=== PATIENT | male | born 1945 | race Caucasian/White ===

== ENCOUNTER 2020-01-05 16:25 | Emergency (ER) | payer MEDICARE, OTHER ==
[~2020-01-05] VITALS: Ht 182.9 cm; Wt 118.2 kg
[2020-01-05] MEDS ORDERED: TERBUTALINE 1 MG/ML VIAL. SQ ONE (16:45)
[2020-01-05] MEDS ORDERED: MORPHINE SULFATE 4 MG/ML DISP.SYRIN. IM ONE (16:45)
[2020-01-05] MEDS ORDERED: LIDOCAINE 1% Multi-Dose 20 ML VIAL. ONE (17:05)
[2020-01-05] MEDS ORDERED: LIDOCAINE 1% PF 30 ML VIAL. INJ ONE (17:15)
[2020-01-05 17:26] VITALS: BP 154/78
--- NOTE | 2020-01-05 18:01 | PHYS DOC ---
Past History Past Medical History: Hypertension Past Surgical History: No Surgical History Alcohol Use: Occasionally Drug Use: None General Adult EDM: Chief Complaint: PROLONGED ERECTION HPI: HPI: 74-year-old male coming in for penis swelling. Is concerned because he took his Viagra and Trymex injection this morning, after intercourse evaluation with. Has been walking around shopping today and after he got home noticed some swelling in his penis. Had an incident a week ago where he was doing his Trimix injection of the needle broke, patient put the needle back on and continue the injection but noted scrotal bruising afterwards. Review of Systems: Review of Systems: Constitutional: Denies fever or chills Eyes: Denies change in visual acuity HENT: Denies nasal congestion or sore throat Respiratory: Denies cough or shortness of breath Cardiovascular: Denies chest pain or edema GI: Denies abdominal pain, nausea, vomiting, bloody stools or diarrhea : Denies dysuria penile swelling Musculoskeletal: Denies back pain or joint pain Integument: Denies rash Neurologic: Denies headache, focal weakness or sensory changes Endocrine: Denies polyuria or polydipsia Lymphatic: Denies swollen glands Psychiatric: Denies depression or anxiety Heart Score: Risk Factors: Risk Factors: DM, Current or recent (<one month) smoker, HTN, HLP, family history of CAD, obesity. Risk Scores: Score 0 - 3: 2.5% MACE over next 6 weeks - Discharge Home Score 4 - 6: 20.3% MACE over next 6 weeks - Admit for Clinical Observation Score 7 - 10: 72.7% MACE over next 6 weeks - Early Invasive Strategies Current Medications: Current Meds: Current Medications Medications (Trade) Dose Ordered Sig/[facility] Start Time Stop Time Status Last Admin Dose Admin Lidocaine HCl 20 ml STK-MED ONCE 01/05/20 17:05 01/05/20 17:06 DC Lidocaine HCl (Lidocaine 1% Pf) 30 ml 1X ONCE 01/05/20 17:15 01/05/20 17:16 DC Morphine Sulfate (Morphine 4mg Syringe) 4 mg 1X ONCE 01/05/20 16:45 01/05/20 16:51 DC 01/05/20 17:00 4 MG Terbutaline Sulfate (Brethine) 0.5 mg 1X ONCE 01/05/20 16:45 01/05/20 16:51 DC 01/05/20 17:00 0.5 MG Allergies: Allergies: Allergies Coded Allergies Type Severity Reaction Last Updated Verified No Known Drug Allergies 01/18/15 No Physical Exam: PE: Constitutional: Well developed, well nourished, no acute distress, non-toxic appearance. [] HENT: Normocephalic, atraumatic, bilateral external ears normal, oropharynx moist, no oral exudates, nose normal. [] Eyes: PERRLA, EOMI, conjunctiva normal, no discharge. [] Neck: Normal range of motion, no tenderness, supple, no stridor. [] Cardiovascular:Heart rate regular rhythm, no murmur [] Lungs & Thorax: Bilateral breath sounds clear to auscultation [] Abdomen: Bowel sounds normal, soft, no tenderness, no masses, no pulsatile masses. [] Skin: Warm, dry, no erythema, no rash. [] Back: No tenderness, no CVA tenderness. [] Extremities: No tenderness, no cyanosis, no clubbing, ROM intact, no edema. [] Neurologic: Alert and oriented X 3, normal motor function, normal sensory function, no focal deficits noted. [] Psychologic: Affect normal, judgement normal, mood normal. [] At ventral site of penis and midshaft there was a 2 x 2 cm fluctuant area, shaft not correct Current Patient Data: Vital Signs: Vital Signs Date Time Temp Pulse Resp B/P (MAP) Pulse Ox O2 Delivery O2 Flow Rate FiO2 01/05/20 17:26 80 18 154/78 (103) 98 Room Air EKG: EKG: [] Radiology/Procedures: Radiology/Procedures: [] Course & Med Decision Making: Course & Med Decision Making No priapism, concern for abscess versus seroma versus hematoma after recent trauma with needle. 1% lidocaine used and needle aspiration with 18-gauge decompression parallel to skin about half a centimeter deep., about 1-1/2 cc of serosanguineous fluid removed, sent for wound culture. Patient tolerated well without complications. Discussed follow-up with urologist due to possibility of urethral damage from needle [] Dragon Disclaimer: Dragon Disclaimer: This electronic medical record was generated, in whole or in part, using a voice recognition dictation system. Departure Departure: Impression: Primary Impression: Swelling of penis Disposition: 01 DC HOME SELF CARE/HOMELESS Condition: STABLE Referrals: EUGENE KIMBLE MD (PCP) Patient Instructions: Wound Care, [id number] RUPERTO ENAMORADO MD Jan 05, 2020 18:01
== END 2020-01-05 18:04 | disposition home or self-care (01) ==
LOC: ER 16:25
DX: N48.89 Other specified disorders of penis (principal); I10 Essential (primary) hypertension
CPT/HCPCS: 10160; 87070; 96372; 99284; J2270; J3105

== ENCOUNTER 2020-06-20 12:04 | Emergency (ER) | payer MEDICARE ==
[~2020-06-20] VITALS: Ht 182.9 cm; Wt 118.2 kg
[2020-06-20 12:23] VITALS: BP 155/74
--- NOTE | 2020-06-20 12:45 | PHYS DOC ---
Past History Past Medical History: Cancer, Hypertension Past Surgical History: No Surgical History Alcohol Use: Occasionally Drug Use: None General Adult EDM: Chief Complaint: KNEE INJURY HPI: HPI: Patient is a 89-year-old male who presents with right knee pain. Patient states yesterday he started having some soreness to his knee. Today he was carrying a bucket of water and his knee went out on him. States he caught himself before he fell. Patient denies any injury. Denies any previous surgery or injury to the right knee. Patient does have some swelling. Patient reports taking 4 ibuprofen at 9 AM and a shot of whiskey. Patient reports his pain has improved. Patient denies tenderness on assessment. With patient is unable to bear weight. Patient has history of prostate cancer, hypertension. Review of Systems: Review of Systems: Constitutional: Denies fever or chills Eyes: Denies change in visual acuity HENT: Denies nasal congestion or sore throat Respiratory: Denies cough or shortness of breath Cardiovascular: Denies chest pain or edema GI: Denies abdominal pain, nausea, vomiting, bloody stools or diarrhea : Denies dysuria Musculoskeletal: Reporting right knee pain, swelling Integument: Denies rash Neurologic: Denies headache, focal weakness or sensory changes Endocrine: Denies polyuria or polydipsia Lymphatic: Denies swollen glands Psychiatric: Denies depression or anxiety Allergies: Allergies: Allergies Coded Allergies Type Severity Reaction Last Updated Verified No Known Drug Allergies 01/18/15 No Physical Exam: PE: Constitutional: Well developed, well nourished, no acute distress, non-toxic appearance. [] HENT: Normocephalic, atraumatic, bilateral external ears normal, oropharynx moist, no oral exudates, nose normal. [] Eyes: PERRLA, EOMI, conjunctiva normal, no discharge. [] Neck: Normal range of motion, no tenderness, supple, no stridor. [] Cardiovascular:Heart rate regular rhythm, no murmur [] Lungs & Thorax: Bilateral breath sounds clear to auscultation [] Abdomen: Bowel sounds normal, soft, no tenderness, no masses, no pulsatile masses. [] Skin: Warm, dry, no erythema, no rash. [] Back: No tenderness, no CVA tenderness. [] Extremities: No tenderness on examination of right knee, some swelling noted, unable to bear weight Neurologic: Alert and oriented X 3, normal motor function, normal sensory function, no focal deficits noted. [] Psychologic: Affect normal, judgement normal, mood normal. [] Current Patient Data: Vital Signs: Vital Signs Date Time Temp Pulse Resp B/P (MAP) Pulse Ox O2 Delivery O2 Flow Rate FiO2 06/20/20 12:23 61 18 155/74 (101) 100 EKG: EKG: [] Radiology/Procedures: Radiology/Procedures: []Right knee 4 views. HISTORY: Right knee pain and swelling 4 views were taken of the right knee. There is slight spurring from mild arthritis. There is no fracture. There is a probable joint effusion. There is a probable joint body posteriorly. IMPRESSION: 1. Joint body posteriorly. 2. Joint effusion. 3. Mild spurring from arthritis. Electronically signed by: Ace Poon MD (06/20/2020 12:44 PM) [id number] Heart Score: C/O Chest Pain: No Risk Factors: Risk Factors: DM, Current or recent (<one month) smoker, HTN, HLP, family history of CAD, obesity. Risk Scores: Score 0 - 3: 2.5% MACE over next 6 weeks - Discharge Home Score 4 - 6: 20.3% MACE over next 6 weeks - Admit for Clinical Observation Score 7 - 10: 72.7% MACE over next 6 weeks - Early Invasive Strategies Course & Med Decision Making: Course & Med Decision Making Pertinent Labs and Imaging studies reviewed. (See chart for details) [] Right knee x-ray ordered to rule out fracture. Patient denies any known inju ry. 4 views were taken of the right knee. There is slight spurring from mild arthritis. There is no fracture. There is a probable joint effusion. There is a probable joint body posteriorly. Patient is denying needing anything for pain at this time. Patient given instructions on RICE. Referral given for Ortho for further evaluation. Patient given knee brace and crutches. Patient to take ibuprofen and Tylenol at home for discomfort. Dragon Disclaimer: Dragon Disclaimer: This electronic medical record was generated, in whole or in part, using a voice recognition dictation system. Departure Departure: Impression: Primary Impression: Knee pain, right Qualified Codes: M25.561 - Pain in right knee Disposition: 01 DC HOME SELF CARE/HOMELESS Condition: STABLE Referrals: EUGENE KIMBLE MD (PCP) Patient Instructions: Knee Pain, [id number], RICE - Routine Care for Injuries, [id number] Additional Instructions: You are seen in the emergency room for right knee pain. Your knee x-ray was negative for fracture. Try and rest your leg, use ice to the area, wear your in your knee brace that is provided, and elevate to reduce swelling. Also provide you with crutches. You can take ibuprofen and Tylenol at home for pain. I am providing orthopedics number for you to follow-up on Monday for further evaluation. EMERGENCY DEPARTMENT GENERAL DISCHARGE INSTRUCTIONS THANK YOU for coming to [facility] Emergency Department (ED) today and trusting us with your care. We trust that you had a positive experience in our Emergency Department. If you wish to speak to the department Management you can contact the department head college or university at . YOUR FOLLOW UP INSTRUCTIONS ARE FOLLOWS: Do you have a private doctor? If you do not have a private doctor, please ask for a resource list of physicians or clinics that may be able to assist you with follow up care. The Emergency Physician has interpreted your x-rays. The X-ray specialist will also review them. If there is a change in the findings you will be notified in 48 hours when at all possible. A lab test or lab culture may have been done, your results will be reviewed and you will be notified if you need a change in treatment. ADDITIONAL INSTRUCTIONS AND INFORMATION Your care today has been supervised by a physician who is specially trained in emergency care. Many problems require more than one evaluation for a complete diagnosis and treatment. We recommend that you schedule your follow up appointment as recommended to ensure complete treatment of your illness or injury. If you are unable to obtain follow up care and continue to have a problem, or if your condition worsens we recommend that you return to the ED. We are not able to safely determine your condition over the phone nor are we able to give sound medical advice over the phone. For these safety reasons, if you call for medical advice we will ask you to come to the ED for further evaluation If you have any questions regarding these discharge instructions please call the ED at . SAFETY INFORMATION In the interest of safety, wellness, and injury prevention; we encourage you to wear your seatbelt, if you smoke; quit smoking, and we encourage your family to use protective helmet for bicycling and other sporting events that present an increased risk for head injury. IF YOUR SYMPTOMS WORSEN OR NEW SYMPTOMS DEVELOP, OR YOU HAVE CONCERNS ABOUT YOUR CONDITION; OR IF YOUR CONDITION WORSENS WHILE YOU ARE WAITING FOR YOUR FOLLOW UP APPOINTMENT; EITHER CONTACT YOUR PRIMARY CARE DOCTOR, THE PHYSICIAN WHOSE NAME AND NUMBER YOU WERE GIVEN, OR RETURN TO THE ED IMMEDIATELY. LUZ MARIA GARCIA APRN Jun 20, 2020 12:45
== END 2020-06-20 13:19 | disposition home or self-care (01) ==
LOC: ER 12:04
DX: M25.561 Pain in right knee (principal); I10 Essential (primary) hypertension
CPT/HCPCS: 73564; 99283